=== PATIENT | male | born 1980 | race Caucasian/White ===

== ENCOUNTER 2017-01-27 19:36 | Emergency (ER) | payer MEDICAID ==
[~2017-01-27] VITALS: Ht 190.5 cm; Wt 75.9 kg
[2017-01-27] MEDS ORDERED: MORPHINE SULFATE 4 MG/ML, 1ML ONE ×2 (20:29→20:50)
[2017-01-27] MEDS ORDERED: ONDANSETRON 2MG/ML, 2ML ONE (20:29)
[2017-01-27] MEDS ORDERED: LIDOCAINE 1%, 20ML ONE (20:29)
[2017-01-27] MEDS ORDERED: ONDANSETRON 2MG/ML, 2ML IVPush ONE (20:30)
[2017-01-27] MEDS ORDERED: SODIUM CHLORIDE FLUSH 10ML SYR IVF ONE (20:30)
[2017-01-27] MEDS ORDERED: SODIUM CHLORIDE 0.9% 1,000ML IVBOLUS ONE (20:30)
[2017-01-27] MEDS ORDERED: AMPICILLIN/SULBACTAM 3 GM in SODIUM CHLORIDE 0.9% 100 ML IVPB ONE (20:30)
[2017-01-27] MEDS ORDERED: ONDANSETRON ODT 4 MG PO ONE (20:30)
[2017-01-27] MEDS ORDERED: LIDOCAINE 2%, 20ML SQ ONE (20:30)
[2017-01-27] MEDS: MORPHINE SULFATE 4 MG/ML, 1ML IV PRN ×2 (20:37→20:52)
[2017-01-27] MEDS ORDERED: HYDROmorphone 1 MG/ML, 1ML ONE (21:36)
[2017-01-27] MEDS ORDERED: HYDROmorphone 1 MG/ML, 1ML IVPush PRN (22:00)
[2017-01-27 22:54] VITALS: BP 113/73
== END 2017-01-27 22:57 | disposition home or self-care (01) ==
LOC: ED 22:40
DX: L02.414 Cutaneous abscess of left upper limb (principal)
CPT/HCPCS: 10060; 36415; 76881; 83605; 85025; 87040; 96365; 96375; 99285; J0295; J1170; J2405; J7030

== ENCOUNTER 2017-01-29 18:38 | Emergency (ER) | payer MEDICAID ==
[~2017-01-29] VITALS: Ht 190.5 cm; Wt 77.6 kg
[2017-01-29] MEDS ORDERED: ONDANSETRON 2MG/ML, 2ML IVPush ONE (19:30)
[2017-01-29] MEDS ORDERED: PIPERACILLIN/TAZO 3.375 GM in SODIUM CHLORIDE 0.9% 50 ML IVPB ONE (19:30)
[2017-01-29] MEDS ORDERED: VANCOMYCIN PER PHARMACY IV ONE (19:30)
[2017-01-29] MEDS ORDERED: SODIUM CHLORIDE FLUSH 10ML SYR IVF ONE (19:30)
[2017-01-29] MEDS ORDERED: PIPERACILLIN/TAZO/PMX 3.375GM 50 ML ONE (19:32)
[2017-01-29] MEDS ORDERED: ONDANSETRON 2MG/ML, 2ML ONE (19:32)
[2017-01-29] MEDS ORDERED: MORPHINE SULFATE 4 MG/ML, 1ML ONE (19:32)
[2017-01-29] MEDS: MORPHINE SULFATE 4 MG/ML, 1ML IVPush PRN ×2 (19:48→20:36)
[2017-01-29] MEDS ORDERED: PHARMACOKINETIC CONSULTATION MC ONE (20:00)
[2017-01-29] MEDS ORDERED: VANCOMYCIN 1,600 MG in SODIUM CHLORIDE 0.9% 250 ML IV ONE (20:00)
[2017-01-29 20:09] LABS: BLOOD UREA NITROGEN 12 mg/dL (7-18)
[2017-01-29] MEDS ORDERED: HYDROmorphone 1 MG/ML, 1ML ONE ×2 (20:16→21:18)
[2017-01-29] MEDS: HYDROmorphone 1 MG/ML, 1ML IVPush PRN ×2 (20:25→21:22)
[2017-01-29 21:48] VITALS: BP 108/67
== END 2017-01-29 22:38 | disposition left against medical advice (07) ==
LOC: ED 20:32 → EDIP 21:46 → UNDOADMIN 21:46
DX: L03.114 Cellulitis of left upper limb (principal)
CPT/HCPCS: 36415; 73080; 76882; 80048; 82040; 85025; 87040; 96365; 96366; 96367; 96375; 96376; 99285; J1170; J2405; J2543; J3370; J7050

== ENCOUNTER 2017-03-09 18:34 | Emergency (ER) | payer MEDICAID ==
[~2017-03-09] VITALS: Ht 190.5 cm; Wt 75.1 kg
[2017-03-09 18:36] VITALS: BP 128/74
[2017-03-09] MEDS ORDERED: HYDROcodone/APAP 5/325 TABLET ONE (19:17)
[2017-03-09] MEDS ORDERED: HYDROcodone/APAP 5/325 TABLET PO ONE (19:30)
== END 2017-03-09 19:51 | disposition home or self-care (01) ==
LOC: ED 19:00
DX: S92.514A Nondisplaced fracture of proximal phalanx of right lesser toe(s), initial encounter for closed fracture (principal); W22.8XXA Striking against or struck by other objects, initial encounter; Y93.89 Activity, other specified; Y92.89 Other specified places as the place of occurrence of the external cause; Y99.8 Other external cause status
CPT/HCPCS: 99284

== ENCOUNTER 2018-02-02 21:04 | Emergency (ER) | payer MEDICAID ==
[~2018-02-02] VITALS: Ht 185.4 cm; Wt 80.8 kg
[2018-02-02 21:05] VITALS: BP 132/88
== END 2018-02-02 21:48 | disposition left against medical advice (07) ==
LOC: ED 21:42
DX: M79.89 Other specified soft tissue disorders (principal); Z53.21 Procedure and treatment not carried out due to patient leaving prior to being seen by health care provider

== ENCOUNTER 2018-03-21 11:31 | Emergency (ER) | payer MEDICAID ==
[~2018-03-21] VITALS: Ht 190.5 cm; Wt 79.6 kg
[2018-03-21 11:39] VITALS: BP 105/67
== END 2018-03-21 13:06 | disposition home or self-care (01) ==
LOC: ED 12:00
DX: M79.671 Pain in right foot (principal)
CPT/HCPCS: 99284

== ENCOUNTER 2018-07-14 19:20 | Emergency (ER) | payer MEDICAID ==
[~2018-07-14] VITALS: Ht 188 cm; Wt 83.4 kg
[2018-07-14] MEDS ORDERED: QUET100T4 PO (19:54)
[2018-07-14] MEDS ORDERED: KETOROLAC 30 MG/1 ML ONE (19:58)
[2018-07-14] MEDS ORDERED: DIPHENHYDRAMINE 50 MG/ML, 1ML ONE (19:58)
[2018-07-14] MEDS ORDERED: PROCHLORPERAZINE 5 MG/ML, 2ML ONE (19:59)
[2018-07-14] MEDS ORDERED: KETOROLAC 30 MG/1 ML IVPush ONE (20:00)
[2018-07-14] MEDS ORDERED: PROCHLORPERAZINE 5 MG/ML, 2ML IVPush ONE (20:00)
[2018-07-14] MEDS ORDERED: DIPHENHYDRAMINE 50 MG/ML, 1ML IVPush ONE (20:00)
[2018-07-14 21:24] VITALS: BP 108/58
== END 2018-07-14 21:46 | disposition home or self-care (01) ==
LOC: ED 19:52
DX: S92.334A Nondisplaced fracture of third metatarsal bone, right foot, initial encounter for closed fracture (principal); S92.344A Nondisplaced fracture of fourth metatarsal bone, right foot, initial encounter for closed fracture; G43.111 Migraine with aura, intractable, with status migrainosus; F32.9 Major depressive disorder, single episode, unspecified; X58.XXXA Exposure to other specified factors, initial encounter; Y93.89 Activity, other specified; Y92.89 Other specified places as the place of occurrence of the external cause; Y99.8 Other external cause status
CPT/HCPCS: 73630; 96374; 96375; 99283; J0780; J1200; J1885

== ENCOUNTER 2019-09-23 12:48 | Emergency (ER) | payer SELFPAY ==
[~2019-09-23] VITALS: Ht 190.5 cm; Wt 80.9 kg
[~2019-09-23 12:48] MED LIST: QUET100T4 PO
[2019-09-23] MEDS ORDERED: LORazepam 1MG TABLET PO ONE (13:30)
[2019-09-23] MEDS ORDERED: LORazepam 1MG TABLET ONE (13:56)
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
[2019-09-23 14:30] VITALS: BP 149/101
--- NOTE | 2019-09-23 14:30 | NUR ---
ZBIGNIEW ALVAREZ AT BEDSIDE FOR RECHECK/EXPLANATION OF POC.
== END 2019-09-23 15:45 | disposition home or self-care (01) ==
LOC: ED 13:45
DX: F41.1 Generalized anxiety disorder (principal); F15.10 Other stimulant abuse, uncomplicated; R06.4 Hyperventilation; G43.909 Migraine, unspecified, not intractable, without status migrainosus
CPT/HCPCS: 93005; 99283

== ENCOUNTER 2019-09-23 22:05 | Emergency (ER) | payer SELFPAY ==
[~2019-09-23] VITALS: Ht 190.5 cm; Wt 80.0 kg
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
[2019-09-23] MEDS ORDERED: ZIPRASIDONE 20 MG INJ IM ONE ×2 (22:27→22:30)
--- NOTE | 2019-09-23 23:12 | NUR ---
PT RESTING IN ROOM WITH EYES CLOSED. REGULAR RESP. NO ACUTE DISTRESS NOTED. CALL LIGHT IN PLACE. WILL CONTINUE TO MONITOR.
--- NOTE | 2019-09-24 00:48 | NUR ---
PT RESTING IN ROOM. NO ACUTE DISTRESS NOTED. WILL CONTINUE TO MONITOR.
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
[2019-09-24 01:23] VITALS: BP 128/92
== END 2019-09-24 01:26 | disposition home or self-care (01) ==
LOC: ED 23:48
DX: F15.129 Other stimulant abuse with intoxication, unspecified (principal); F41.1 Generalized anxiety disorder; Z72.9 Problem related to lifestyle, unspecified
CPT/HCPCS: 96372; 99283; J3486

== ENCOUNTER 2021-02-06 13:07 | Emergency (ER) | payer MEDICAID ==
[~2021-02-06] VITALS: Ht 190.5 cm; Wt 85.4 kg
[2021-02-06 13:10] VITALS: BP 142/96
== END 2021-02-06 13:27 | disposition home or self-care (01) ==
LOC: ED 13:09
DX: F33.9 Major depressive disorder, recurrent, unspecified (principal); Z76.0 Encounter for issue of repeat prescription; G43.909 Migraine, unspecified, not intractable, without status migrainosus
CPT/HCPCS: 99281